=== PATIENT | female | born 1960 | race Caucasian/White ===

== ENCOUNTER 2016-11-28 07:57 | Day surgery (SDC) | payer OTHER ==
[~2016-11-28] VITALS: Ht 162.6 cm; Wt 74.0 kg
[~2016-11-28 07:57] MED LIST: 0.9% Sodium Chloride 1,000 ML IV SCH; ESCI20TA PO; ESTR10TA VAGINAL; FLUT9.9S NS; LISI-567 PO; MULT-1018 PO; ROB500 PO; Sodium Chloride LOK Flush 10 mL Syringe IV PRN; fentaNYL-PF 50 mCg/mL 2 mL Inj IVPUSH PRN
[2016-11-28 08:33] VITALS: BP 138/90; PULSE 52; RESP 16; O2SAT 96
[2016-11-28 09:22] VITALS: BP 133/86; PULSE 51; RESP 16; O2SAT 98
[2016-11-28 09:32] VITALS: BP 121/72; PULSE 47; RESP 16; O2SAT 97
[2016-11-28 09:42] VITALS: BP 139/79; PULSE 50; RESP 16; O2SAT 97
--- NOTE | 2016-11-28 12:02 | ENDO ---
[address] [address] ENDOSCOPY PROCEDURE PATIENT: MISTY WILSON : 1960 MR#: [id number] ADMIT: 11/28/2016 JOB ID: [id number] PRIMARY PROVIDER: Kaila Umanzor MD PROCEDURE: Colonoscopy with cold forceps polypectomy and hot snare polypectomy. INDICATIONS: A 55-year-old female here for colon cancer screening. EQUIPMENT: [employer]. SEDATION: 1. Versed 4 mg. 2. Fentanyl 100 mcg. COMPLICATIONS: None identified. BOWEL PREP: Poor. PROCEDURE INFO: After the risks and benefits were explained, written and verbal informed consent was obtained. The patient was brought into the endoscopy suite and placed into the left lateral decubitus position. Sedation was achieved using the above-stated medications with the addition of oxygen via nasal cannula. A digital rectal examination was accomplished. Mild internal external nonbleeding, non-thrombosed hemorrhoids. The scope was introduced into the rectum and advanced under direct visualization to the level of the cecum as identified by the appendiceal orifice and ileocecal valve. The scope was slowly withdrawn to carefully examine the mucosa for any defects or lesions. Multiple direct views were made through the dentate line for exclusion of pathology. The colon was decompressed. The scope removed from the patient who tolerated the procedure well. FINDINGS: The patient had some scattered diverticula in the left colon. In the descending there was an approximately 5-6 mm polyp removed with hot snare. On the ileocecal valve there was a diminutive polyp perhaps 3 mm removed with cold forceps. These were sent together as "colon polyps." The prep conditions were suboptimal in most locations requiring copious amounts of irrigation and suction. Some areas just simply could not become fully visualized secondary to the solid debris that would clog the endoscope. For example part of the cecum was not fully seen as a consequence of solid stool debris. ENDOSCOPIC DIAGNOSES: 1. Colon polyps. 2. Diverticulosis. 3. Hemorrhoids. 4. Suboptimal prep. RECOMMENDATIONS: 1. Await histopathology. 2. Considering prep conditions repeat colonoscopy with an extra day of liquids and MiraLAX prior to officially prepping in one year.
--- NOTE | 2016-11-29 15:08 | PATH ---
SURGICAL PATHOLOGY Attending Physician:Mariano Galeana CASE STATUS: Signed Out PATIENT NAME: MISTY WILSON PID: [id number] : 1960 DATE COLLECTED:11/28/2016 00:00 SPECIMEN: Colon, Polyp CLINICAL HISTORY: POLYPS 1). COLON POLYPS FINAL DIAGNOSIS: Colon, Polyps, Biopsies: Portions of tubular adenoma x2; negative for high-grade dysplasia. ICD10: K63.5 GROSS DESCRIPTION: The specimen is received in one formalin filled container labeled with the patient's name, sublabeled "colon polyps" and consists of 2 portions of tissue which aggregate to 0.4 x 0.4 x 0.3 CM. The specimen is entirely submitted in one cassette. 11/28/2016[place] ICD-9 CODES: CPT CODES: 1: 79796 Electronically Signed Out Jennifer Banks MD [facility] Pathology [facility] [address], [place] [address] Technical component performed at [facility], [facility] [address], [address]
== END 2016-11-28 23:59 | disposition home or self-care (01) ==
LOC: END 07:57
PROVIDERS: ATTEND Internal Medicine Gastroenterology
DX: Z12.11 Encounter for screening for malignant neoplasm of colon (principal); D12.4 Benign neoplasm of descending colon; D12.0 Benign neoplasm of cecum; K57.30 Diverticulosis of large intestine without perforation or abscess without bleeding; K64.8 Other hemorrhoids; I10 Essential (primary) hypertension; F33.1 Major depressive disorder, recurrent, moderate; F17.210 Nicotine dependence, cigarettes, uncomplicated; E66.3 Overweight
CPT/HCPCS: 45380; 45385; 99153; G0500; J2250; J3010; J7030